=== PATIENT | female | born 1990 | race Caucasian/White ===

== ENCOUNTER 2018-09-17 20:14 | Emergency (ER) | payer BC ==
[~2018-09-17] VITALS: Ht 170.2 cm; Wt 68.0 kg
--- NOTE | 2018-09-17 20:40 | NUR ---
PT BIB BOYFRIEND IN PRIVATE VEHICLE. PT A/OX4, ABLE TO FOLLOW COMMANDS. PT C/O C/P THAT STARTED ABOUT 1 HOUR AGO AFTER AN ONSET OF SHORTNESS OF BREATH, C/P NON-PROVOKING, UNABLE TO DESCRIBE PAIN, DOES NOT RADIATE, 9/10, CONSTANT. PT STATES SHE WAS EATING DINNER AT A [employer] AND STARTED FEELING NAUSEOUS W/ AN ONSET OF SOB THAT PROGRESSED INTO C/P. VSS.
[2018-09-17] MEDS ORDERED: ASPIRIN 81 MG TAB.CHEW ONE (20:42)
[2018-09-17] MEDS ORDERED: ASPIRIN 81 MG TAB.CHEW PO ONE (20:45)
[2018-09-17] MEDS ORDERED: IV NORMAL SALINE 1000 ML BAG IV ONE (20:45)
[2018-09-17 20:55] LABS: BASOPHILS % (AUTO) 0.4 % (0.0-2.0); EOSINOPHILS # (AUTO) 0.4 K/uL (0.0-0.7); EOSINOPHILS % (AUTO) 4.8 % (0.0-7.0); HEMATOCRIT 41.6 % (31.2-41.9); HEMOGLOBIN 14.6 g/dL (10.9-14.3); LYMPHOCYTES # (AUTO) 3.4 K/uL (20.0-40.0); LYMPHOCYTES % (AUTO) 40.4 % (20.5-51.5); MEAN CORPUSCULAR HEMOGLOBIN 30.6 uug (24.7-32.8); MEAN CORPUSCULAR HGB CONC 35 g/dL (32.3-35.6); MEAN CORPUSCULAR VOLUME 87.4 fL (75.5-95.3); MONOCYTES # (AUTO) 0.6 K/uL (2.0-10.0); MONOCYTES % (AUTO) 6.9 % (0.0-11.0); NEUTROPHILS % (AUTO) 47.5 % (38.5-71.5); PLATELET COUNT (AUTO) 346 K/uL (179-408); RED BLOOD CELL COUNT(AUTO) 4.76 MIL/uL (3.63-4.92); WHITE BLOOD COUNT (AUTO) 8.5 K/uL (3.8-11.8)
[2018-09-17] MEDS ORDERED: ONDANSETRON 4 MG/2 ML VIAL ONE (21:01)
[2018-09-17 21:02] LABS: *URINE HCG, QUAL NEGATIVE (NEGATIVE)
--- NOTE | 2018-09-17 21:05 | NUR ---
PT N/VX3, ER NOTIFIED. MEDICATED ORDERED BY .
[2018-09-17 21:07] LABS: CREATININE 0.7 mg/dL (0.6-1.3); POTASSIUM 3.1 mmol/L (3.5-5.1)
[2018-09-17 21:16] LABS: BILIRUBIN,DIRECT 0.1 mg/dL (0.0-0.2); BILIRUBIN,TOTAL 0.3 mg/dL (0.2-1.0); TOTAL PROTEIN, SERUM 8.2 g/dL (6.4-8.2)
[2018-09-17] MEDS ORDERED: LORAZEPAM 2 MG/1 ML VIAL ONE (21:26)
[2018-09-17] MEDS ORDERED: LORAZEPAM 2 MG/1 ML VIAL IV ONE (21:30)
[2018-09-17] MEDS ORDERED: ONDANSETRON IV *ER 4 MG/2 ML VIAL IV ONE (21:30)
--- NOTE | 2018-09-17 22:35 | NUR ---
Patient discharged to home in stable conditon. Written and verbal after care instructions given. Patient verbalizes understanding of instructions. PT D/C W/ PRESCRIPTION. ALL BELONGINGS W/ PT. PT SELF-AMBULATED WITHOUT DIFFICULTY. 20G IV ACCESS IN L AC REMOVED PRIOR TO D/C - INNER CANNULA INTACT.
[2018-09-17 22:37] VITALS: BP 122/72
== END 2018-09-17 22:37 | disposition home or self-care (01) ==
LOC: ER 20:15
DX: R06.00 Dyspnea, unspecified (principal); R07.89 Other chest pain; F41.9 Anxiety disorder, unspecified
CPT/HCPCS: 36415; 71045; 80048; 80076; 83880; 84484; 84703; 85025; 85379; 93005; 96374; 96375; 99285; J2060; J2405; 70030-TC; A4663; J7030